=== PATIENT | female | born 1960 | race Caucasian/White ===

== ENCOUNTER 2017-02-28 17:43 | Observation (INO) | payer BC ==
[2017-02-28] MEDS ORDERED: ASPIRIN 81 MG CHEW PO STA (18:20)
[2017-02-28 18:52] LABS: Basophils # (A) 0.1 k/uL (0-0.2); Basophils % (A) 1 %; CH 31.9; CHCM 33.4; Eosinophils # (A) 0.2 k/uL (0-0.7); Eosinophils % (A) 2 %; HCT 39.9 % (34.0-46.0); HGB 13.6 gm/dL (11.4-16.0); Luc # (Auto) 0.12; Luc % (Auto) 1; Lymphocytes # (A) 2.7 k/uL (1.0-4.8); Lymphocytes % (A) 26 %; MCH 32.8 pg (25.0-35.0); MCHC 34.1 g/dL (31.0-37.0); MCV 95.9 fL (80.0-100.0); Mean Platelet Volume 7.9; Monocytes # (A) 0.4 k/uL (0-1.0); Monocytes % (A) 4 %; Neutrophils # (A) 6.9 k/uL (1.3-7.7); Neutrophils % (A) 67 %; RBC 4.16 m/uL (3.80-5.40); RDW 13.7 % (11.5-15.5); WBC 10.3 k/uL (3.8-10.6); WBC (Perox) 9.94
--- NOTE | 2017-02-28 18:55 | XR ---
EXAMINATION TYPE: XR chest 2V DATE OF EXAM: 02/28/2017 COMPARISON: NONE HISTORY: Shortness of breath and fatigue. TECHNIQUE: Frontal and lateral views of the chest are obtained. FINDINGS: There is no focal air space opacity, pleural effusion, or pneumothorax seen. The cardiac silhouette size is upper limits of normal. The osseous structures are intact. IMPRESSION: No acute cardiopulmonary process.
[2017-02-28 19:02] LABS: ALT 36 U/L (9-52); AST 20 U/L (14-36); Alkaline Phosphatase 83 U/L (38-126); Anion Gap 12 mmol/L; Blood Urea Nitrogen 20 mg/dL (7-17); Calcium 9.9 mg/dL (8.4-10.2); Carbon Dioxide 24 mmol/L (22-30); Chloride 105 mmol/L (98-107); Glucose 110 mg/dL (74-99); Non-African American GFR(MDRD) 51 (>60 ml/min/1.73 sqM); Potassium 4.2 mmol/L (3.5-5.1); Sodium 141 mmol/L (137-145); Total Bilirubin 0.5 mg/dL (0.2-1.3); Total Protein 7.4 g/dL (6.3-8.2)
[2017-02-28 19:04] LABS: Partial Thromboplastin Time 26.3 sec (22.0-30.0); Prothrombin Time 10.1 sec (9.0-12.0)
[2017-02-28 19:13] LABS: Creatine Kinase 164 U/L (30-135)
[2017-02-28] MEDS ORDERED: SODIUM CHLORIDE 0.9% 500 ML IV STA (19:21)
--- NOTE | 2017-02-28 19:22 | US ---
EXAMINATION TYPE: US venous doppler duplex LE LT DATE OF EXAM: 02/28/2017 7:15 PM COMPARISON: NONE CLINICAL HISTORY: Left leg Pain. SIDE PERFORMED: Left TECHNIQUE: The lower extremity deep venous system is examined utilizing real time linear array sonog agnes with graded compression, doppler sonography and color-flow sonography. VESSELS IMAGED: External Iliac Vein (EIV) Common Femoral Vein Deep Femoral Vein Greater Saphenous Vein * Femoral Vein Popliteal Vein Small Saphenous Vein * Proximal Calf Veins (* superficial vessels) Left Leg: Negative for DVT Grayscale, color doppler, spectral doppler imaging performed of the deep veins of the left lower extr emity. There is normal flow, compressibility, vascular waveforms in the left lower extremity. IMPRESSION: No ultrasound evidence for acute DVT in the left lower extremity.
[2017-02-28 19:26] LABS: Creatine Kinase MB 2.1 ng/mL (0.0-2.4); Troponin I <0.012 ng/mL (0.000-0.034)
[2017-02-28] MEDS ORDERED: NITROGLYCERIN SL TABS 0.4 MG TAB SUBLINGUAL PRN (19:40)
[2017-02-28] MEDS ORDERED: HEPARIN SODIUM,PORCINE 5,000 UNIT/ML 1 ML VIAL IV ONE (19:40)
--- NOTE | 2017-02-28 19:51 | ED ---
SOB HPI - General Chief Complaint: Shortness of Breath Stated Complaint: Chest congestion/Ankle pain Time Seen by Provider: 02/28/17 18:14 Source: patient Mode of arrival: ambulatory Limitations: no limitations - History of Present Illness Initial Comments: 57 year-old female patient with past medical history significant for hyperlipidemia and hypertension, presents to emergency department today for complaints of shortness of breath, chest tightness, and fatigue for the last 3 days. Patient states that the shortness breath does increase with activity. States the chest tightness is constant and increases with deep inspiration. Patient is also complaining of burning pain to the medial side of her left ankle , where she does feel a "lump", she denies any injury to this area. She states onset of this pain was also three days ago. She denies any cough, dizziness, fever, nausea, or vomiting. She has been having hot and cold flashes. Patient does admit to smoking at least a pack per day. - Related Data Home Medications Medication Instructions Recorded Confirmed Albuterol Inhaler [Ventolin Hfa 1 - 2 puff INHALATION RT-Q6H PRN 02/28/17 Inhaler] Diazepam [Valium] 5 mg PO DAILY 02/28/17 02/28/17 Lisinopril (Unknown Dose) 1 tab PO DAILY 02/28/17 02/28/17 [place] (Unkown Dose) 1 tab PO DAILY PRN 02/28/17 02/28/17 Pramipexole (Unknown Dose) 1 tab PO HS 02/28/17 02/28/17 Simvastatin (Unknown Dose) 1 tab PO HS 02/28/17 02/28/17 Allergies Allergy/AdvReac Type Severity Reaction Status Date / Time Penicillins Allergy Rash/Hives Verified 02/28/17 19:00 Review of Systems ROS Statement: Those systems with pertinent positive or pertinent negative responses have been documented in the HPI. ROS Other: All systems not noted in ROS Statement are negative. Past Medical History Past Medical History: Hyperlipidemia, Hypertension, Thyroid Disorder History of Any Multi-Drug Resistant Organisms: None Reported Past Surgical History: Appendectomy Additional Past Surgical History / Comment(s): D&C Past Psychological History: Anxiety, Depression Smoking Status: Current some day smoker Past Alcohol Use History: Rare Past Drug Use History: None Reported General Exam Limitations: no limitations General appearance: alert, in no apparent distress Eye exam: Present: normal appearance, PERRL, EOMI. Absent: scleral icterus, conjunctival injection, periorbital swelling ENT exam: Present: normal exam, normal oropharynx, mucous membranes moist Neck exam: Present: normal inspection. Absent: tenderness, meningismus, lymphadenopathy Respiratory exam: Present: normal lung sounds bilaterally. Absent: respiratory distress, wheezes, rales, rhonchi, stridor Cardiovascular Exam: Present: regular rate, normal rhythm, normal heart sounds. Absent: systolic murmur, diastolic murmur, rubs, gallop, clicks GI/Abdominal exam: Present: soft, normal bowel sounds. Absent: distended, tenderness, guarding, rebound, rigid Extremities exam: Present: normal inspection, full ROM, tenderness (Tenderness noted to the medial aspect of the left ankle), normal capillary refill, other ( Firm mass is palpable over the medial aspect of the left ankle. ). Absent: pedal edema, joint swelling, calf tenderness Neurological exam: Present: alert, oriented X3, CN II-XII intact Psychiatric exam: Present: normal affect, normal mood Skin exam: Present: warm, dry, intact, normal color. Absent: rash Course Vital Signs 02/28/17 02/28/17 18:04 19:09 Temperature 98.2 F Pulse Rate 85 64 Respiratory 18 20 Rate Blood Pressure 122/78 102/58 O2 Sat by Pulse 98 96 Oximetry Medical Decision Making - Medical Decision Making 57 year-old female patient presented to emergency department today for complaints of chest tightness, dyspnea, and fatigue for the last 3 days. Initial workup was negative however with patient risk factors she will be started on heparin and admitted for further evaluation by cardiology. - Lab Data Result diagrams: 02/28/17 18:42 02/28/17 18:42 Lab Results 02/28/17 02/28/17 02/28/17 Range/Units 18:42 18:42 18:42 WBC 10.3 (3.8-10.6) k/uL RBC 4.16 (3.80-5.40) m/uL Hgb 13.6 (11.4-16.0) gm/dL Hct 39.9 (34.0-46.0) % MCV 95.9 (80.0-100.0) fL MCH 32.8 (25.0-35.0) pg MCHC 34.1 (31.0-37.0) g/dL RDW 13.7 (11.5-15.5) % Plt Count 286 (150-450) k/uL Neutrophils % 67 % Lymphocytes % 26 % Monocytes % 4 % Eosinophils % 2 % Basophils % 1 % Neutrophils # 6.9 (1.3-7.7) k/uL Lymphocytes # 2.7 (1.0-4.8) k/uL Monocytes # 0.4 (0-1.0) k/uL Eosinophils # 0.2 (0-0.7) k/uL Basophils # 0.1 (0-0.2) k/uL PT (9.0-12.0) sec INR (<1.2) APTT (22.0-30.0) sec D-Dimer (<0.60) mg/L FEU Sodium 141 (137-145) mmol/L Potassium 4.2 (3.5-5.1) mmol/L Chloride 105 (98-107) mmol/L Carbon Dioxide 24 (22-30) mmol/L Anion Gap 12 mmol/L BUN 20 H (7-17) mg/dL Creatinine 1.10 H (0.52-1.04) mg/dL Est GFR (MDRD) Af Amer >60 (>60 ml/min/1.73 sqM) Est GFR (MDRD) Non-Af 51 (>60 ml/min/1.73 sqM) Glucose 110 H (74-99) mg/dL Calcium 9.9 (8.4-10.2) mg/dL Total Bilirubin 0.5 (0.2-1.3) mg/dL AST 20 (14-36) U/L ALT 36 (9-52) U/L Alkaline Phosphatase 83 (38-126) U/L Total Creatine Kinase 164 H (30-135) U/L CK-MB (CK-2) 2.1 (0.0-2.4) ng/mL CK-MB (CK-2) Rel Index 1.3 Troponin I <0.012 (0.000-0.034) ng/mL NT-Pro-B Natriuret Pep pg/mL Total Protein 7.4 (6.3-8.2) g/dL Albumin 4.6 (3.5-5.0) g/dL 02/28/17 02/28/17 Range/Units 18:42 18:42 WBC (3.8-10.6) k/uL RBC (3.80-5.40) m/uL Hgb (11.4-16.0) gm/dL Hct (34.0-46.0) % MCV (80.0-100.0) fL MCH (25.0-35.0) pg MCHC (31.0-37.0) g/dL RDW (11.5-15.5) % Plt Count (150-450) k/uL Neutrophils % % Lymphocytes % % Monocytes % % Eosinophils % % Basophils % % Neutrophils # (1.3-7.7) k/uL Lymphocytes # (1.0-4.8) k/uL Monocytes # (0-1.0) k/uL Eosinophils # (0-0.7) k/uL Basophils # (0-0.2) k/uL PT 10.1 (9.0-12.0) sec INR 1.0 (<1.2) APTT 26.3 (22.0-30.0) sec D-Dimer 0.44 (<0.60) mg/L FEU Sodium (137-145) mmol/L Potassium (3.5-5.1) mmol/L Chloride (98-107) mmol/L Carbon Dioxide (22-30) mmol/L Anion Gap mmol/L BUN (7-17) mg/dL Creatinine (0.52-1.04) mg/dL Est GFR (MDRD) Af Amer (>60 ml/min/1.73 sqM) Est GFR (MDRD) Non-Af (>60 ml/min/1.73 sqM) Glucose (74-99) mg/dL Calcium (8.4-10.2) mg/dL Total Bilirubin (0.2-1.3) mg/dL AST (14-36) U/L ALT (9-52) U/L Alkaline Phosphatase (38-126) U/L Total Creatine Kinase (30-135) U/L CK-MB (CK-2) (0.0-2.4) ng/mL CK-MB (CK-2) Rel Index Troponin I (0.000-0.034) ng/mL NT-Pro-B Natriuret Pep 114 pg/mL Total Protein (6.3-8.2) g/dL Albumin (3.5-5.0) g/dL - EKG Data -: EKG Interpreted by Me 02/28/17 18:58 EKG obtained at 1827 reveals normal sinus rhythm with an incomplete right bundle branch block. Ventricular rate 70, VA interval 140, QRS duration 108, QT 420, QTC 423. No prior EKGs done at this facility to compare. - Radiology Data Radiology results: report reviewed Two-view chest x-ray reveals no acute cardiopulmonary process. Ultrasound venous Doppler of the left lower leg was negative for DVT. Disposition Clinical Impression: Chest pain, Dyspnea Disposition: ADMITTED IP TO THIS [facility] Condition: Stable Referrals: None,Stated [Primary Care Provider] - 1-2 days Decision to Admit Reason: Admit from EC Decision Date: 02/28/17 Decision Time: 19:51
[2017-02-28] MEDS ORDERED: LORazepam 2 MG/ML SYRINGE IV STA (19:55)
[2017-02-28] MEDS: HEPARIN SODIUM,PORCINE/D5W PMX 25,000 UNIT in DEXTROSE/WATER 1 500ML.BAG IV SCH (20:18)
[2017-02-28 22:29] VITALS: BMI 28.7
[2017-03-01 00:56] LABS: Creatine Kinase 137 U/L (30-135)
[2017-03-01 01:10] LABS: Creatine Kinase MB 1.8 ng/mL (0.0-2.4); Troponin I <0.012 ng/mL (0.000-0.034)
[2017-03-01 03:23] LABS: Cholesterol 195 mg/dL (<200); HDL Cholesterol 61 mg/dL (40-60)
[2017-03-01 07:45] LABS: Creatine Kinase 142 U/L (30-135)
[2017-03-01 07:57] LABS: Creatine Kinase MB 1.9 ng/mL (0.0-2.4); Troponin I <0.012 ng/mL (0.000-0.034)
[2017-03-01 08:19] VITALS: RESP 18
[2017-03-01] MEDS ORDERED: ASPIRIN 325 MG TAB PO SCH (09:00)
--- NOTE | 2017-03-01 09:03 | P.CRDCN ---
History of Present Illness Consult date: 03/01/17 History of present illness: This is a 57-year-old female with history of hypertension, hypercholesterolemia and also smoking who came to the emergency room with complaints of chest tightness, shortness of breath and also of pain in in the left leg. She claimed that the tightness in the chest was intermittent, progressively became more consistent and constant. Patient claimed that she could not take a deep breath. Her EKGs did not reveal any acute changes. Her cardiac enzymes are negative. Her d-dimer values within normal limits. Venous duplex study of the leg did not show any evidence of DVT. Patient is feeling better today. She is being scheduled for a stress echocardiogram and surface echocardiogram. If the tests are negative patient could be discharged home. Patient should be counseled for this factor modification, especially cessation of smoking. Review of Systems As per the chart Past Medical History Past Medical History: Hyperlipidemia, Hypertension, Osteoarthritis (OA), Thyroid Disorder History of Any Multi-Drug Resistant Organisms: None Reported Past Surgical History: Appendectomy Additional Past Surgical History / Comment(s): D&C Past Anesthesia/Blood Transfusion Reactions: No Reported Reaction Past Psychological History: Anxiety, Depression Smoking Status: Current some day smoker Past Alcohol Use History: Rare Past Drug Use History: None Reported Medications and Allergies Home Medications Medication Instructions Recorded Confirmed Type Albuterol Inhaler [Ventolin Hfa 1 - 2 puff INHALATION RT-Q6H PRN 02/28/17 History Inhaler] Diazepam [Valium] 5 mg PO DAILY 02/28/17 02/28/17 History Lisinopril (Unknown Dose) 10 tab PO DAILY 02/28/17 03/01/17 History [place] (Unkown Dose) 1 tab PO DAILY PRN 02/28/17 02/28/17 History Pramipexole (Unknown Dose) 1 tab PO HS 02/28/17 02/28/17 History Simvastatin (Unknown Dose) 20 tab PO HS 02/28/17 03/01/17 History Hydrocodone/Acetaminophen [[place] 1 tab PO DAILY PRN 03/01/17 03/01/17 History 10-325] Allergies Allergy/AdvReac Type Severity Reaction Status Date / Time Penicillins Allergy Rash/Hives Verified 02/28/17 19:00 Physical Exam Vitals: Vital Signs Temp Pulse Pulse Resp BP BP Pulse Ox 03/01/17 08:02 96 07/25/17 08:00 97.8 F 72 18 119/67 96 03/01/17 04:46 97.8 F 69 16 111/54 97 03/01/17 04:00 65 16 03/01/17 03:05 65 16 03/01/17 00:00 66 16 02/28/17 23:33 97.6 F 87 16 134/70 98 02/28/17 20:56 97.6 F 67 18 103/60 97 02/28/17 20:05 98.3 F 63 20 113/73 96 02/28/17 19:09 64 20 102/58 96 02/28/17 18:04 98.2 F 85 18 122/78 98 Intake and Output 02/28/17 03/01/17 03/01/17 22:59 06:59 14:59 Intake Total 204.333 Balance 204.333 Intake: Intake, IV Titration 204.333 Amount Heparin Sodium,Porcine/ 204.333 D5w Pmx 25,000 unit In Dextrose/Water 1 500ml. bag @ 11.03 UNITS/KG/HR 20.01 mls/hr IV .Q24H [facility] Rx#:[id number] Other: # Voids 1 1 Weight 90.718 kg 90.718 kg GENERAL EXAM: Patient is alert and oriented and doesn't appear to be in any acute distress HEENT: Normocephalic. Normal reaction of pupils, equal size, normal range of extraocular motion. No erythema or exudates in the throat. NECK: No masses, no nuchal rigidity. CHEST: No chest wall deformity. LUNGS: Equal air entry with no crackles or wheeze. HEART: S1 and S2 normal with no audible mumurs or gallops. Regular rhythm, femorals equal on both sides.. ABDOMEN: No hepatosplenomegaly, normal bowel sounds, no guarding or rigidity. SKIN: No rashes CENTRAL NERVOUS SYSTEM: No focal deficits. EXTREMITIES: No cyanosis, clubbing or edema. Results 02/28/17 18:42 02/28/17 18:42 Cardiac Enzymes 02/28/17 02/28/17 03/01/17 Range/Units 18:42 18:42 00:01 AST 20 (14-36) U/L CK-MB (CK-2) 2.1 1.8 (0.0-2.4) ng/mL Troponin I <0.012 <0.012 (0.000-0.034) ng/mL 03/01/17 Range/Units 06:30 AST (14-36) U/L CK-MB (CK-2) 1.9 (0.0-2.4) ng/mL Troponin I <0.012 (0.000-0.034) ng/mL Coagulation 02/28/17 03/01/17 Range/Units 18:42 02:47 PT 10.1 (9.0-12.0) sec APTT 26.3 40.9 H (22.0-30.0) sec Lipids 03/01/17 Range/Units 02:47 Triglycerides 147 (<150) mg/dL Cholesterol 195 (<200) mg/dL HDL Cholesterol 61 H (40-60) mg/dL CBC 02/28/17 Range/Units 18:42 WBC 10.3 (3.8-10.6) k/uL RBC 4.16 (3.80-5.40) m/uL Hgb 13.6 (11.4-16.0) gm/dL Hct 39.9 (34.0-46.0) % Plt Count 286 (150-450) k/uL Comprehensive Metabolic Panel 02/28/17 Range/Units 18:42 Sodium 141 (137-145) mmol/L Potassium 4.2 (3.5-5.1) mmol/L Chloride 105 (98-107) mmol/L Carbon Dioxide 24 (22-30) mmol/L BUN 20 H (7-17) mg/dL Creatinine 1.10 H (0.52-1.04) mg/dL Glucose 110 H (74-99) mg/dL Calcium 9.9 (8.4-10.2) mg/dL AST 20 (14-36) U/L ALT 36 (9-52) U/L Alkaline Phosphatase 83 (38-126) U/L Total Protein 7.4 (6.3-8.2) g/dL Albumin 4.6 (3.5-5.0) g/dL Current Medications Generic Name Dose Route Start Last Admin Trade Name Freq PRN Reason Stop Dose Admin Aspirin 325 mg 03/01/17 09:00 03/01/17 08:12 Aspirin PO 325 mg DAILY JACOB Administration Heparin Sodium/Dextrose 25,000 500 mls @ 20.01 mls/hr 02/28/17 19:45 06:31 unit/ IV Solution IV 13 units/kg/hr .Q24H JACOB 23.6 mls/hr Protocol Titration 11.03 UNITS/KG/HR Nitroglycerin 0.4 mg 02/28/17 19:40 Nitrostat SUBLINGUAL Q5M PRN Chest Pain Intake and Output 02/28/17 03/01/17 03/01/17 22:59 06:59 14:59 Intake Total 204.333 Balance 204.333 Intake: Intake, IV Titration 204.333 Amount Heparin Sodium,Porcine/ 204.333 D5w Pmx 25,000 unit In Dextrose/Water 1 500ml. bag @ 11.03 UNITS/KG/HR 20.01 mls/hr IV .Q24H [facility] Rx#:[id number] Other: # Voids 1 1 Weight 90.718 kg 90.718 kg 02/28/17 18:42 02/28/17 18:42 EKG Interpretations (text) Sinus rhythm Assessment and Plan (1) Hypertension Status: Acute (2) Chest pain Status: Acute (3) Dyspnea Status: Acute (4) Hypercholesterolemia Status: Acute Plan: This patient is admitted with chest tightness and shortness of breath. So far. D-dimer is normal. The chest x-ray did not reveal any findings of significance. Cardiac enzymes are negative. The patient is being scheduled for a surface echocardiogram and also stress echo. If the test are negative patient could be discharged home.
[2017-03-01] MEDS: HEPARIN SODIUM,PORCINE/D5W PMX 25,000 UNIT in DEXTROSE/WATER 1 500ML.BAG IV SCH (10:16)
[2017-03-01 11:57] VITALS: BP 102/55; PULSE 77; TEMP 98.3
--- NOTE | 2017-03-01 14:04 | P.HPIM ---
History of Present Illness This is a 57-year-old female with history of hypertension, hypercholesterolemia and also smoking who came to the emergency room with complaints of chest tightness, moderately severe shortness of breath and also of pain in in the left leg. She claimed that the tightness in the chest was intermittent, progressively became more consistent and constant. Her chest pain is nonpleuritic in nature not associated with food, denied any diaphoresis or shortness of breath associated with that. Her EKGs did not reveal any acute changes. Her cardiac enzymes are negative. Her d-dimer values within normal limits. Venous duplex study of the leg did not show any evidence of DVT. Patient is feeling better today. Patient is undergoing stress test if that's negative patient will be discharged today. Patient appears to have musculoskeletal chest pain. Review of Systems REVIEW OF SYSTEMS: CONSTITUTIONAL: No fever, no malaise, no fatigue. HEENT: No recent visual problems or hearing problems. Denied any sore throat. CARDIOVASCULAR: No orthopnea, PND, no palpitations, no syncope. PULMONARY: No shortness of breath, no cough, no hemoptysis. GASTROINTESTINAL: No diarrhea, no nausea, no vomiting, no abdominal pain. Normoactive bowel sounds. NEUROLOGICAL: No headaches, no weakness, no numbness. HEMATOLOGICAL: Denies any bleeding or petechiae. GENITOURINARY: Denies any burning micturition, frequency, or urgency. MUSCULOSKELETAL/RHEUMATOLOGICAL: Denies any joint pain, swelling, or any muscle pain. ENDOCRINE: Denies any polyuria or polydipsia. The rest of the 14-point review of systems is negative. Past Medical History Past Medical History: Hyperlipidemia, Hypertension, Osteoarthritis (OA), Thyroid Disorder History of Any Multi-Drug Resistant Organisms: None Reported Past Surgical History: Appendectomy Additional Past Surgical History / Comment(s): D&C Past Anesthesia/Blood Transfusion Reactions: No Reported Reaction Past Psychological History: Anxiety, Depression Smoking Status: Current some day smoker Past Alcohol Use History: Rare Past Drug Use History: None Reported Medications and Allergies Home Medications Medication Instructions Recorded Confirmed Type Albuterol Inhaler [Ventolin Hfa 1 - 2 puff INHALATION RT-Q6H PRN 02/28/17 History Inhaler] Diazepam [Valium] 5 mg PO DAILY 02/28/17 02/28/17 History Hydrocodone/Acetaminophen [[place] 1 tab PO DAILY PRN 03/01/17 03/01/17 History 10-325] Hydrocodone/Acetaminophen [[place] 1 tab PO DAILY PRN 03/01/17 03/01/17 History 10-325] Pramipexole [Mirapex] 1 mg PO HS 03/01/17 03/01/17 History Simvastatin [Zocor] 20 mg PO HS 03/01/17 03/01/17 History Allergies Allergy/AdvReac Type Severity Reaction Status Date / Time Penicillins Allergy Rash/Hives Verified 02/28/17 19:00 Physical Exam Vitals: Vital Signs Temp Pulse Pulse Resp BP BP Pulse Ox 03/01/17 12:00 18 03/01/17 11:56 98.3 F 77 18 102/55 95 03/01/17 08:02 96 03/01/17 08:00 97.8 F 72 18 119/67 96 03/01/17 04:46 97.8 F 69 16 111/54 97 03/01/17 04:00 65 16 03/01/17 03:05 65 16 03/01/17 00:00 66 16 02/28/17 23:33 97.6 F 87 16 134/70 98 02/28/17 20:56 97.6 F 67 18 103/60 97 02/28/17 20:05 98.3 F 63 20 113/73 96 02/28/17 19:09 64 20 102/58 96 02/28/17 18:04 98.2 F 85 18 122/78 98 Intake and Output 02/28/17 03/01/17 03/01/17 22:59 06:59 14:59 Intake Total 204.333 Balance 204.333 Intake: Intake, IV Titration 204.333 Amount Heparin Sodium,Porcine/ 204.333 D5w Pmx 25,000 unit In Dextrose/Water 1 500ml. bag @ 11.03 UNITS/KG/HR 20.01 mls/hr IV .Q24H [facility] Rx#:[id number] Other: # Voids 1 1 Weight 90.718 kg 90.718 kg PHYSICAL EXAMINATION: GENERAL: The patient is alert and oriented x3, not in any acute distress. Well developed, well nourished. HEENT: Pupils are round and equally reacting to light. EOMI. No scleral icterus. No conjunctival pallor. Normocephalic, atraumatic. No pharyngeal erythema. No thyromegaly. CARDIOVASCULAR: S1 and S2 present. No murmurs, rubs, or gallops. PULMONARY: Chest is clear to auscultation, no wheezing or crackles. ABDOMEN: Soft, nontender, nondistended, normoactive bowel sounds. No palpable organomegaly. MUSCULOSKELETAL: No joint swelling or deformity. EXTREMITIES: No cyanosis, clubbing, or pedal edema. NEUROLOGICAL: Gross neurological examination did not reveal any focal deficits. SKIN: No rashes. Results CBC & Chem 7: 02/28/17 18:42 02/28/17 18:42 Labs: Abnormal Lab Results - Last 24 Hours (Table) 02/28/17 02/28/17 03/01/17 Range/Units 18:42 18:42 00:01 APTT (22.0-30.0) sec BUN 20 H (7-17) mg/dL Creatinine 1.10 H (0.52-1.04) mg/dL Glucose 110 H (74-99) mg/dL Total Creatine Kinase 164 H 137 H (30-135) U/L LDL Cholesterol, Calc (0-99) mg/dL HDL Cholesterol (40-60) mg/dL 03/01/17 03/01/17 03/01/17 Range/Units 02:47 02:47 06:30 APTT 40.9 H (22.0-30.0) sec BUN (7-17) mg/dL Creatinine (0.52-1.04) mg/dL Glucose (74-99) mg/dL Total Creatine Kinase 142 H (30-135) U/L LDL Cholesterol, Calc 105 H (0-99) mg/dL HDL Cholesterol 61 H (40-60) mg/dL Assessment and Plan Plan: #1 chest pain: Rule out acute coronary syndromes and unstable angina, patient is undergoing stresses if that's negative patient will be discharged today patient most probably has musculoskeletal chest pain. #2 hypertension: Patient's blood pressure is on the low normal side because of which I am discontinuing her antidepressant medications and patient will follow with PCP and patient was asked to check the blood pressures at home. #3 mild acute renal failure: Expected to improve with disc herniation of lisinopril and hydrochlorothiazide. #4 tingling and numbness in the left foot area secondary to peripheral neuropathy. #5 hypothyroidism #6 osteoarthritis
--- NOTE | 2017-03-01 14:05 | P.DS ---
Providers Date of admission: 02/28/17 19:51 Attending physician: Alexandre Castro Consults: 02/28/17 19:45 Consult Physician Urgent Consulting Provider: [facility] Consult Reason/Comments: Chest Pain, Dyspnea Do you want consulting provider notified?: Yes Primary care physician: Stated None Hospital Course: Please refer to HPI Patient Condition at Discharge: Stable Plan - Discharge Summary New Discharge Prescriptions: Discontinued Lisinopril-Hctz 20-25 mg [Zestoretic 20-25] 1 tab PO DAILY No Action Albuterol Inhaler [Ventolin Hfa Inhaler] 1 - 2 puff INHALATION RT-Q6H PRN PRN Reason: Shortness Of Breath Diazepam [Valium] 5 mg PO DAILY Hydrocodone/Acetaminophen [[place] 10-325] 1 tab PO DAILY PRN PRN Reason: Pain Simvastatin [Zocor] 20 mg PO HS Hydrocodone/Acetaminophen [[place] 10-325] 1 tab PO DAILY PRN PRN Reason: Pain Pramipexole [Mirapex] 1 mg PO HS Discharge Medication List Albuterol Inhaler [Ventolin Hfa Inhaler] 1 - 2 puff INHALATION RT-Q6H PRN [History] Diazepam [Valium] 5 mg PO DAILY 02/28/17 [History] Hydrocodone/Acetaminophen [[place] 10-325] 1 tab PO DAILY PRN 03/01/17 [History] Hydrocodone/Acetaminophen [[place] 10-325] 1 tab PO DAILY PRN 03/01/17 [History] Pramipexole [Mirapex] 1 mg PO HS 03/01/17 [History] Simvastatin [Zocor] 20 mg PO HS 03/01/17 [History] Follow up Appointment(s)/Referral(s): None,Stated [Primary Care Provider] - 1-2 days Discharge Disposition: HOME SELF-CARE
--- NOTE | 2017-03-02 09:42 | ECHOF ---
Referral Reason:Chest pain and cardiomyopathy MEASUREMENTS -------- HEIGHT: 177.8 cm WEIGHT: 90.7 kg BP: 119/67 RVIDd: 2.7 cm (< 3.3) IVSd: 1.0 cm (0.6 - 1.1) LVIDd: 5.3 cm (3.9 - 5.3) LVPWd: 1.0 cm (0.6 - 1.1) IVSs: 1.6 cm LVIDs: 3.9 cm LVPWs: 1.4 cm LAESV Index (A-L): 29.81 ml/m Ao Diam: 3.3 cm (2.0 - 3.7) AV Cusp: 1.9 cm (1.5 - 2.6) LA Diam: 3.3 cm (2.7 - 3.8) MV E Alex: 0.91 m/s MV DecT: 342 ms MV A Alex: 0.63 m/s MV E/A Ratio: 1.46 RAP: 5.00 mmHg RVSP: 33.20 mmHg FINDINGS -------- Resting bradycardia (HR<60bpm). This was a technically adequate study. Overall left ventricular systolic function is normal with, an EF between 55 - 60 %. The right ventricle is normal in size and function. LA is midly dilated 29-33ml/m2. The right atrium is normal in size. Aortic valve is trileaflet and is mildly thickened. There is no evidence of aortic regurgitation. There is no evidence of aortic stenosis. The mitral valve leaflets are mildly thickened. There is trace to mild mitral regurgitation. Trace tricuspid regurgitation present. There is no evidence of pulmonary hypertension. The right ventricular systolic pressure, as measured by Doppler, is 33.20mmHg. Trace/mild (physiologic) pulmonic regurgitation. The aortic root size is normal. Normal inferior vena cava with normal inspiratory collapse consistent with estimated right atrial pressure of 5 mmHg. The pericardium is normal. There is no pericardial effusion. CONCLUSIONS -------- 1. Resting bradycardia (HR<60bpm). 2. The right ventricular systolic pressure, as measured by Doppler, is 33.20mmHg. 3. Trace/mild (physiologic) pulmonic regurgitation. 4. The aortic root size is normal. 5. There is no pericardial effusion. 6. This was a technically adequate study. 7. Overall left ventricular systolic function is normal with, an EF between 55 - 60 %. 8. LA is midly dilated 29-33ml/m2. 9. Aortic valve is trileaflet and is mildly thickened. 10. The mitral valve leaflets are mildly thickened. 11. There is trace to mild mitral regurgitation. 12. Trace tricuspid regurgitation present. 13. There is no evidence of pulmonary hypertension. CARDIOVASCULAR SONOGRAPHER: Marquez Cui RDCS
--- NOTE | 2017-03-02 10:15 | ECHOS ---
Referral Reason:chest pain MEASUREMENTS -------- HEIGHT: 177.8 cm WEIGHT: 90.7 kg BP: WallScoring: string WallScoring: string FINDINGS -------- Utilizing the standard Leandro protocol the patient was exercised for 6 minutes, seconds, achieving a maximum heart rate of 145 , which is 88 % of predicted maximal heart rate. There was physiologic heart rate and blood pressure response to exercise. Max Heart Rate: 145 % of Max Predicted Heart Rate: 88 Rest Heart Rate: 68 Rest BP: 121/50 Max BP: 193/59 Mets Achieved: 7.1 The test was stopped because of fatigue. Sinus rhythm. In response to stress, the ECG showed no ST-T wave changes (see exercise report for details). LV size, wall thickness and systolic function are normal, with an EF of 60%. Echo images were acquired at peak stress which demonstrated appropriate augmentation of all left ventricular segments with slight decrease in cavity size. CONCLUSIONS -------- 1. Sinus rhythm. 2. In response to stress, the ECG showed no ST-T wave changes (see exercise report for details). 3. LV size, wall thickness and systolic function are normal, with an EF of 60%. 4. Echo images were acquired at peak stress which demonstrated appropriate augmentation of all left ventricular segments with slight decrease in cavity size. 5. XXX functional exercise capacity. No ECG or 2D echocardiographic evidence of inducible ischemia to achieved workload. IT NETWORK ARCHITECT: Hansa Sanchez RDCS
--- NOTE | 2017-03-03 16:21 | EST ---
Referral Reason:chest pain MEASUREMENTS -------- HEIGHT: 177.8 cm WEIGHT: 90.7 kg BP: FINDINGS -------- Utilizing the standard Leandro protocol the patient was exercised for 6 minutes, seconds, achieving a maximum heart rate of 145 , which is 88 % of predicted maximal heart rate. There was physiologic heart rate and blood pressure response to exercise. Max Heart Rate: 145 % of Max Predicted Heart Rate: 88 Rest Heart Rate: 68 Rest BP: 121/50 Max BP: 193/59 Mets Achieved: 7.1 The test was stopped because of fatigue. Sinus rhythm. In response to stress, the ECG showed no ST-T wave changes (see exercise report for details). LV size, wall thickness and systolic function are normal, with an EF of 60%. Echo images were acquired at peak stress which demonstrated appropriate augmentation of all left ventricular segments with slight decrease in cavity size. CONCLUSIONS -------- 1. Sinus rhythm. 2. In response to stress, the ECG showed no ST-T wave changes (see exercise report for details). 3. LV size, wall thickness and systolic function are normal, with an EF of 60%. 4. Echo images were acquired at peak stress which demonstrated appropriate augmentation of all left ventricular segments with slight decrease in cavity size. 5. XXX functional exercise capacity. No ECG or 2D echocardiographic evidence of inducible ischemia to achieved workload. ELECTORAL OFFICER: Hansa Sanchez RDCS MTDD
== END 2017-03-01 14:28 | disposition home or self-care (01) ==
LOC: EC 17:43 → 3OBS 19:51
PROVIDERS: ADMIT Hospitalist; ATTEND Hospitalist
DX: R07.89 Other chest pain (principal); R06.02 Shortness of breath; I10 Essential (primary) hypertension; E78.5 Hyperlipidemia, unspecified; F41.9 Anxiety disorder, unspecified; E78.00 Pure hypercholesterolemia, unspecified; M79.605 Pain in left leg; N17.9 Acute kidney failure, unspecified; F17.200 Nicotine dependence, unspecified, uncomplicated; M19.90 Unspecified osteoarthritis, unspecified site; G62.9 Polyneuropathy, unspecified; Z79.899 Other long term (current) drug therapy; Z88.0 Allergy status to penicillin
CPT/HCPCS: 96376 ×2; 96361 ×2; 96365 ×2; 96375 ×2; 99285 ×2; 96366 ×2; 36415; 94760; 93005; 93350; 93017; 93306; 85379; 83880; 80061; 80053; 82550 ×2; 82553 ×2; 84484 ×2; 85025; 85610; 85730 ×2; 71020; 93971; G0378 ×2; J2060; J1644 ×2; Q9957

== ENCOUNTER → 2023-12-16 | Outpatient (CLI) | payer OTHER ==
--- NOTE | 2023-12-16 16:59 | US ---
EXAMINATION TYPE: US venous doppler duplex LE DATE OF EXAM: 12/16/2023 2:03 PM COMPARISON: Left lower extremity venous ultrasound 02/28/2017. CLINICAL INDICATION: Female, 63 years old with history of R60.0 LOCALIZED EDEMA; Swelling per patient . No redness. No injury. SIDE PERFORMED: Left TECHNIQUE: The lower extremity deep venous system is examined utilizing real time linear array sonog agnes with graded compression, doppler sonography and color-flow sonography. VESSELS IMAGED: Common Femoral Vein Deep Femoral Vein Greater Saphenous Vein * Femoral Vein Popliteal Vein Small Saphenous Vein * Proximal Calf Veins (* superficial vessels) Grayscale, color doppler, spectral doppler imaging performed of the deep veins of the left lower extr emity. There is normal flow, compressibility, vascular waveforms. Left Leg: Negative for DVT IMPRESSION: No ultrasound evidence for deep venous thrombosis of the left lower extremity.
== END | disposition home or self-care (01) ==
LOC: RADUSWWP 13:46
PROVIDERS: ATTEND Family Medicine
DX: R60.0 Localized edema (principal)

== ENCOUNTER → 2024-03-08 | Outpatient (CLI) | payer OTHER ==
--- NOTE | 2024-03-08 11:07 | US ---
EXAMINATION TYPE: US abdomen complete DATE OF EXAM: 03/08/2024 COMPARISON: NONE CLINICAL INDICATION: Female, 64 years old with history of R10.11 RIGHT UPPER QUADRANT PAIN; TECHNIQUE: Multiple sonographic images of the abdomen are obtained. FINDINGS: EXAM MEASUREMENTS: Liver Length: 16.7 cm Gallbladder Wall: 0.2 cm CBD: 0.6 cm Spleen: 9.0 cm Right Kidney: 9.1 x 4.9 x 4.4 cm Left Kidney: 9.6 x 5.6 x 5.0 cm Pancreas: visualized portions wnl, limited by overlying midline bowel gas Liver: 1.6 cyst right lobe . Slightly coarsened echo pattern. Gallbladder: wnl Evidence for sonographic Martinez's sign: no CBD: borderline dilated Spleen: wnl Right Kidney: wnl Left Kidney: wnl Upper IVC: wnl Abd Aorta: wnl The liver is homogenous. The intrahepatic portion of the IVC and proximal abdominal aorta are within normal limits. There is no evidence of cholelithiasis. The visualized portions of the pancreas are homogenous. The spleen is unremarkable. Kidneys are symmetric and free of hydronephrosis. No debbie l lesions are seen. IMPRESSION: 1. Borderline hepatomegaly with simple hepatic benign cyst. Slightly coarsened pattern to the liver c an be associated with underlying hepatocellular disease or hepatic steatosis. Correlate clinically.
== END | disposition home or self-care (01) ==
LOC: RADUSWWP 08:00
PROVIDERS: ATTEND Family Medicine
DX: R10.11 Right upper quadrant pain (principal); R16.0 Hepatomegaly, not elsewhere classified
CPT/HCPCS: 76700

== ENCOUNTER → 2024-04-27 | Outpatient (CLI) | payer OTHER ==
--- NOTE | 2024-04-30 08:14 | MM ---
Reason for Exam: Screening (asymptomatic). Last screening mammogram was performed 12 month(s) ago. Patient History: Menarche at age 13. First Full-Term at age 19. Postmenopausal. Mother had breast cancer, age 66. Risk Values: Tea 5 year model risk: 2.9%. NCI Lifetime model risk: 12.1%. Prior Study Comparison: 06/02/2018 Bilateral Screening Mammogram, [facility]. 07/16/2020 Bilateral Screening Mammogram, [facility]. 03/11/2022 Bilateral Screening Mammogram, [facility]. 04/19/2023 Bilateral Screening Mammogram, [facility]. Tissue Density: There are scattered areas of fibroglandular density. Findings: Analyzed By CAD. There is no suspicious group of microcalcifications or new suspicious mass in either breast. Benign-appearing calcifications. Chronic nodularity stable. Stable appearing axillary lymph nodes. Overall Assessment: Benign, BI-RAD 2 Management: Screening Mammogram of both breasts in 1 year. . Patient should continue monthly self-breast exams. A clinical breast exam by your physician is recommended on an annual basis. This exam should not preclude additional follow-up of suspicious palpable abnormalities. Note on Tea scores and lifetime risk: 1. A Tea score greater than 3% is considered moderate risk. If this is the case, consider specialist referral to assess eligibility for a risk reducing agent. 2. If overall lifetime risk for the development of breast cancer is 20% or higher, the patient may qualify for future screening with alternating mammogram and breast MRI. [facility], , 04/30/2024 8:12 AM. Electronically signed and approved by: Bartolome Ruelas M.D. Radiologis
== END | disposition home or self-care (01) ==
LOC: RADMAMWWP 08:26
PROVIDERS: ATTEND Family Medicine
DX: Z12.31 Encounter for screening mammogram for malignant neoplasm of breast
CPT/HCPCS: 77063; 77067